=== PATIENT | male | born 1980 ===

== ENCOUNTER 2023-08-28 21:57 | Emergency (ER) | payer OTHER ==
[~2023-08-28] VITALS: Ht 177.8 cm; Wt 91.6 kg
[2023-08-28 22:23] VITALS: BP 114/74; PULSE 64; RESP 18
[2023-08-28] MEDS ORDERED: IBUPROFEN 600 MG TABLET PO ONE (23:00)
== END 2023-08-28 23:57 | disposition home or self-care (01) ==
LOC: EDH 21:57
DX: S39.012A Strain of muscle, fascia and tendon of lower back, initial encounter (principal); V89.2XXA Person injured in unspecified motor-vehicle accident, traffic, initial encounter; Y93.89 Activity, other specified; Y92.89 Other specified places as the place of occurrence of the external cause; Y99.8 Other external cause status
CPT/HCPCS: 72100